=== PATIENT | female | born 1970 | race American Indian/Alaskan Native ===

== ENCOUNTER 2017-08-08 00:22 | Observation (INO) | payer OTHER ==
--- NOTE | 2017-08-08 01:03 | ED PDOC ---
HPI: Hypertension/Hypotension Time Seen by Provider: 08/08/17 00:46 Chief Complaint (Nursing): High Blood Pressure Chief Complaint (Provider): possible high BP History Per: Patient Additional Complaint(s): 47-year-old female with history of migraines and hypertension presents with palpitations and high blood pressure. Patient was at home and she felt palpitations and then checked her blood pressure and it was very high(165/101). She took 10 mg of Norvasc which she normally takes daily for high blood pressure. Patient rechecked her blood pressure about 20 minutes after the Norvasc dose and it went up (205/110) so patient contacted ambulance and was brought here. Upon arrival patient has intermittent chest pain and palpitations. She also complains of mild headache. Patient denies any vision changes upon arrival. Patient was discharged today from [facility] after being admitted 2 days ago for TIA and chest pain. Past Medical History Reviewed: Historical Data, Nursing Documentation, Vital Signs Vital Signs: Last Vital Signs Temp 99.1 F 08/08/17 00:24 Pulse 105 H 08/08/17 00:24 Resp 16 08/08/17 00:24 BP 146/65 08/08/17 00:24 Pulse Ox 99 08/08/17 00:24 - Medical History PMH: HTN, Migraine, TIA - Family History Family History: States: No Known Family Hx - Living Arrangements Living Arrangements: Alone - Social History Current smoker - smoking cessation education provided: No Alcohol: None Drugs: Denies - Home Medications Home Medications: Ambulatory Orders Medication Instructions Recorded Aspirin 81 mg PO DAILY 08/05/17 amLODIPine [Norvasc] 10 mg PO DAILY 08/05/17 Magnesium Oxide [Mag-Ox] 400 mg PO BID #60 tab 08/07/17 - Allergies Allergies/Adverse Reactions: Allergies Allergy/AdvReac Type Severity Reaction Status Date / Time No Known Allergies Allergy Verified 08/08/17 00:26 Review of Systems ROS Statement: Except As Marked, All Systems Reviewed And Found Negative Constitutional: Negative for: Fever Cardiovascular: Positive for: Chest Pain, Palpitations Respiratory: Negative for: Cough, Shortness of Breath, SOB with Exertion Gastrointestinal: Negative for: Nausea, Vomiting Neurological: Positive for: Headache. Negative for: Altered Mental Status, Dizziness Physical Exam - Reviewed Nursing Documentation Reviewed: Yes Vital Signs Reviewed: Yes - Physical Exam Appears: Positive for: Well, Non-toxic, No Acute Distress Head Exam: Positive for: ATRAUMATIC Skin: Positive for: Normal Color. Negative for: Rash Eye Exam: Positive for: Normal appearance, EOMI, PERRL Cardiovascular/Chest: Positive for: Regular Rate, Rhythm Respiratory: Positive for: Normal Breath Sounds. Negative for: Wheezing, Respiratory Distress Extremity: Positive for: Normal ROM. Negative for: Pedal Edema Neurologic/Psych: Positive for: Alert, appraiser art II-XII (grossly intact), Oriented. Negative for: Motor/Sensory Deficits, Aphasia, Facial Droop - Laboratory Results Result Diagrams: 08/08/17 01:11 08/08/17 01:11 - ECG Interpretation Of ECG: Atrial flutter 89 bpm reviewed by PA and ED attending O2 Sat by Pulse Oximetry: 99 Pulse Ox Interpretation: Normal - Other Rad Bedside chest X-Ray: Interpreted by Me, Viewed By Me X-Ray Interpretation: no acute finding CT head X-Ray: Read By Radiologist X-Ray Interpretation: see below Medical Decision Making Medical Decision Makin:05: 47 year old with palpitations and high blood pressure Plan: EKG CXR CBC CMP Trop BNP TSH Free T3 T3 Free T4 IVF at 125 cc/hr A flutter noted on EKG with rate of 89 bpm. Reviewed by PA and ED attending. Will admit patient for observation. 2:00 am: repeat BP 153/101, HR 94 - Labetalol 20 mg IV ordered. Patient also states she now has blurry vision with headache. CT head ordered, reglan IV ordered for headache 2:55 am: repeat BP after reglan: 144/80. Labetalol held. Patient states headache now resolved. CT head: FINDINGS: Brain: Prominent cisterna magnum. No hemorrhage. No significant white matter disease. Ventricles: Unremarkable. No ventriculomegaly. Bones/joints: Unremarkable. No acute fracture. Soft tissues: Fatty infiltration of parotid glands. Sinuses: Unremarkable. No acute sinusitis. Mastoid air cells : Unremarkable. No mastoid effusion. Orbits: The globe and lens are intact. IMPRESSION: No evidence of an acute intracranial hemorrhage, midline shift or mass effect is identified. 4:00 am: patient states headache is back, toradol 30 mg IV ordered. 4:30 am: BP 148/98, labetalol 10 mg IV ordered 5:30 am: Case was d/w medicine bus person, Dr. Chase. Patient admitted to observation telemetry. Disposition - Clinical Impression Clinical Impression: Palpitations, Hypertension - Patient ED Disposition Is Patient to be Admitted: Yes - Disposition Disposition Time: 05:28 Condition: FAIR - Pt Status Changed To: Hospital Disposition Of: Observation
[2017-08-08 01:21] LABS: BASO % 0.2 % (0.0-2.0); EOS % 0.1 % (0.0-4.0); HEMOGLOBIN 14.9 g/dL (12.0-16.0); LYMPH # 0.7 K/uL (1.0-4.3); LYMPH % 4.9 % (20.0-40.0); MEAN CELL VOLUME 92.8 fl (81.0-99.0); MEAN CORPUSCULAR HEMOGLOBIN 30.8 pg (27.0-31.0); MEAN CORPUSCULAR HGB CONC 33.1 g/dL (33.0-37.0); MEAN PLATELET VOLUME 7.8 fl (7.2-11.7); MONO # 0.6 K/uL (0.0-0.8); MONO % 4.5 % (0.0-10.0); NEUT # 12.9 K/uL (1.8-7.0); NEUT % 90.3 % (50.0-75.0); NRBC % 0.1 % (0.0-0.0); PLATELET COUNT 221 K/uL (130-400); RBC 4.84 Mil/uL (3.80-5.20); RED CELL DISTRIBUTION WIDTH 14.2 % (11.5-14.5); WHITE BLOOD COUNT 14.3 K/uL (4.8-10.8)
[2017-08-08 01:24] LABS: ALB/GLOB RATIO 1.2 (1.0-2.1); ALBUMIN 4.3 g/dL (3.5-5.0); CALCIUM 10.3 mg/dL (8.4-10.2); GFR AFRICAN-AMERICAN > 60; GFR NON-AFRICAN AMERICAN > 60
[2017-08-08 01:33] LABS: ALT/SGPT 52 U/L (9-52); AST/SGOT 45 U/L (14-36); BLOOD UREA NITROGEN 17 mg/dl (7-17)
[2017-08-08] MEDS ORDERED: Sodium Chloride 0.9% 1,000 ML IV STA (01:38)
[2017-08-08] MEDS ORDERED: Labetalol 5 mg/ml Inj 20ML IV STA (01:55)
[2017-08-08 02:01] VITALS: RESP 18
--- NOTE | 2017-08-08 02:22 | CT ---
EXAM: CT Head Without Intravenous Contrast CLINICAL HISTORY: 47 years old, female; Pain; Headache; Additional info: Blurry vision, headache TECHNIQUE: Axial computed tomography images of the head/brain without intravenous contrast. All CT scans at this facility use one or more dose reduction techniques, viz.: automated exposure control; ma/kV adjustment per patient size (including targeted exams where dose is matched to indication; i.e. head); or iterative reconstruction technique. 338 images are submitted. Axial images are submitted in bone and brain windows. Coronal and sagittal reformatted images were created and reviewed. Axial reformatted images were created and reviewed. COMPARISON: No relevant prior studies available. FINDINGS: Brain: Prominent cisterna magnum. No hemorrhage. No significant white matter disease. Ventricles: Unremarkable. No ventriculomegaly. Bones/joints: Unremarkable. No acute fracture. Soft tissues: Fatty infiltration of parotid glands. Sinuses: Unremarkable. No acute sinusitis. Mastoid air cells: Unremarkable. No mastoid effusion. Orbits: The globe and lens are intact. IMPRESSION: No evidence of an acute intracranial hemorrhage, midline shift or mass effect is identified.
[2017-08-08 03:26] LABS: B-TYPE NATRIURETIC PEPTIDE 75.9 pg/ml (0-450)
[2017-08-08] MEDS ORDERED: Labetalol 5 mg/ml Inj 20ML IVP STA (04:28)
[2017-08-08 04:30] LABS: LYMPHOCYTE 2 % (20-50); MONOCYTE 6 % (0-10); NEUTROPHIL 92 % (42-75); TOTAL CELLS COUNTED 100
[2017-08-08 04:31] LABS: ANISOCYTOSIS SLIGHT; BURR CELLS SLIGHT; PLATELET ESTIMATE NORMAL (NORMAL); TEARDROP CELLS SLIGHT
[2017-08-08 05:13] LABS: T3 0.911 nmol/L (1.49-2.60)
--- NOTE | 2017-08-08 08:01 | RAD ---
HISTORY: chest pain COMPARISON: No prior. FINDINGS: LUNGS: No active pulmonary disease. PLEURA: No significant pleural effusion identified, no pneumothorax apparent. CARDIOVASCULAR: Normal. OSSEOUS STRUCTURES: No significant abnormalities. VISUALIZED UPPER ABDOMEN: Normal. OTHER FINDINGS: None. IMPRESSION: No acute cardiopulmonary disease appreciated.
[2017-08-08 08:42] LABS: ALB/GLOB RATIO 1.4 (1.0-2.1); ALT/SGPT 49 U/L (9-52); AST/SGOT 28 U/L (14-36); BLOOD UREA NITROGEN 13 mg/dl (7-17); GFR AFRICAN-AMERICAN > 60; GFR NON-AFRICAN AMERICAN > 60; HDL CHOLESTEROL 46 MG/DL (30-70)
--- NOTE | 2017-08-08 08:45 | CP.PCM.HP ---
History of Present Illness - History of Present Illness History of Present Illness: 47 yo ,f, PMhx/o Migraines, HTN, TIA presents c/o palpitation started yesterday afternoon. Patient was recently discharged yesterday early from [facility] due to TIA and migraine resolved. Patient states that late during the night she took her BP , it was high 165/101 and she got nervous, started felling palpitation, SOB, headache and when repeated BP it was 205/101/ and patient decided to come to Ed. She denies focal weakness, numbness, chest pain, cough, dysuria. Patient evaluated by Dr Chase during round today. patient asymptomatic, BP controlled, patient cleared to be discharged on metoprolol 50 mg BID Present on Admission - Present on Admission Any Indicators Present on Admission: No History of DVT/PE: No History of Uncontrolled Diabetes: No Urinary Catheter: No Decubitus Ulcer Present: No Review of Systems - Review of Systems All systems: reviewed and no additional remarkable complaints except - Cardiovascular Additional comments: palpitation , SOB - Neurological Additional comments: headache Past Patient History - Past Medical History & Family History Past Medical History?: Yes - Past Social History Smoking Status: Never Smoked - CARDIAC Hx Hypertension: Yes - PULMONARY Hx Respiratory Disorders: No - NEUROLOGICAL Hx Migraine: Yes Hx Transient Ischemic Attacks (TIA): Yes - HEENT Hx HEENT Problems: No - RENAL Hx Chronic Kidney Disease: No - ENDOCRINE/METABOLIC Hx Endocrine Disorders: Yes - HEMATOLOGICAL/ONCOLOGICAL Hx Blood Disorders: No - INTEGUMENTARY Hx Dermatological Problems: No - MUSCULOSKELETAL/RHEUMATOLOGICAL Hx Musculoskeletal Disorders: No Hx Falls: No - GASTROINTESTINAL Hx Gastrointestinal Disorders: No - GENITOURINARY/GYNECOLOGICAL Hx Genitourinary Disorders: No - PSYCHIATRIC Hx Substance Use: No - SURGICAL HISTORY Hx Surgeries: No - ANESTHESIA Hx Anesthesia: No Meds Home Medications: Home Medication List Medication Instructions Recorded Confirmed Type Metoprolol Tartrate [Lopressor] 50 mg PO Q12 #60 tab 08/08/17 Rx Allergies/Adverse Reactions: Allergies Allergy/AdvReac Type Severity Reaction Status Date / Time No Known Allergies Allergy Verified 08/08/17 00:26 Physical Exam - Constitutional Appears: Toxic, No Acute Distress - Head Exam Head Exam: ATRAUMATIC, NORMOCEPHALIC - Eye Exam Eye Exam: Normal appearance - ENT Exam ENT Exam: Mucous Membranes Moist - Neck Exam Neck exam: Positive for: Normal Inspection - Respiratory Exam Respiratory Exam: Clear to Auscultation Bilateral. absent: Rhonchi, Wheezes - Cardiovascular Exam Cardiovascular Exam: REGULAR RHYTHM, +S1, +S2 - GI/Abdominal Exam GI & Abdominal Exam: Normal Bowel Sounds, Soft - Extremities Exam Extremities exam: Positive for: normal inspection. Negative for: pedal edema - Neurological Exam Neurological exam: Alert, Oriented x3 - Psychiatric Exam Psychiatric exam: Normal Affect, Normal Mood - Skin Skin Exam: Intact Results - Vital Signs Recent Vital Signs: Last Vital Signs Temp 98.4 F 08/08/17 07:56 Pulse 86 08/08/17 07:56 Resp 18 08/08/17 07:56 BP 120/77 08/08/17 07:56 Pulse Ox 100 08/08/17 07:56 - Labs Result Diagrams: 08/08/17 01:11 08/08/17 08:17 Labs: Laboratory Results - last 24 hr 08/08/17 08/08/17 08/08/17 01:11 01:11 03:03 WBC 14.3 H RBC 4.84 Hgb 14.9 Hct 44.9 MCV 92.8 MCH 30.8 MCHC 33.1 RDW 14.2 Plt Count 221 MPV 7.8 Neut % (Auto) 90.3 H Lymph % (Auto) 4.9 L [place] % (Auto) 4.5 Eos % (Auto) 0.1 Baso % (Auto) 0.2 Neut # (Auto) 12.9 H Lymph # (Auto) 0.7 L [place] # (Auto) 0.6 Eos # (Auto) 0.0 Baso # (Auto) 0.0 Neutrophils % (Manual) 92 H Lymphocytes % (Manual) 2 L Monocytes % (Manual) 6 Platelet Estimate Normal Anisocytosis (manual) Slight Tear Drop Cells Slight [place] Cells Slight Sodium 139 Potassium 4.5 Chloride 105 Carbon Dioxide 22 Anion Gap 17 BUN 17 Creatinine 0.8 Est GFR ( Amer) > 60 Est GFR (Non-Af Amer) > 60 Random Glucose 127 H Calcium 10.3 H Total Bilirubin 1.0 AST 45 H D ALT 52 Alkaline Phosphatase 70 Troponin I 0.0170 NT-Pro-B Natriuret Pep Total Protein 7.8 Albumin 4.3 Globulin 3.5 Albumin/Globulin Ratio 1.2 Triglycerides Cholesterol HDL Cholesterol Free T4 1.15 Total T3 TSH 3rd Generation 08/08/17 08/08/17 03:03 08:17 WBC RBC Hgb Hct MCV MCH MCHC RDW Plt Count MPV Neut % (Auto) Lymph % (Auto) [place] % (Auto) Eos % (Auto) Baso % (Auto) Neut # (Auto) Lymph # (Auto) [place] # (Auto) Eos # (Auto) Baso # (Auto) Neutrophils % (Manual) Lymphocytes % (Manual) Monocytes % (Manual) Platelet Estimate Anisocytosis (manual) Tear Drop Cells [place] Cells Sodium 139 Potassium 4.1 Chloride 104 Carbon Dioxide 26 Anion Gap 13 BUN 13 Creatinine 0.7 Est GFR ( Amer) > 60 Est GFR (Non-Af Amer) > 60 Random Glucose 97 Calcium 9.0 Total Bilirubin 0.6 AST 28 ALT 49 Alkaline Phosphatase 64 Troponin I < 0.0120 NT-Pro-B Natriuret Pep 75.9 Total Protein 6.9 Albumin 4.0 Globulin 2.9 Albumin/Globulin Ratio 1.4 Triglycerides 50 Cholesterol 158 HDL Cholesterol 46 Free T4 Total T3 0.911 L TSH 3rd Generation 1.48 Assessment & Plan - Assessment and Plan (Free Text) Plan: Assessment/Plan 1) Palpitation -2/2 high blood pressure and anxiety -resolved 2) HTN Uncontrolled Will give metoprolol 50 mg BID 3) Migrainge -controlled -CT head, MRI normal 4) DVT Prophylaxis -Lovenox 40 mg sc daily
[2017-08-08 08:48] LABS: LDL CHOLESTEROL 90 mg/dL (0-129)
[2017-08-08] MEDS ORDERED: Magnesium Oxide 400 mg Tab UD PO SCH (09:00)
--- NOTE | 2017-08-08 11:54 | CARD ---
APPROVED REPORT EKG Measurement Heart [id number] IN P44 [id number] <Conclusion> Sinus rhythm Nonspecific T wave abnormality Abnormal ECG artefact in lead V5
[2017-08-08 12:08] VITALS: BP 119/79; PULSE 77; TEMP 98.2; O2SAT 98
[2017-08-08 13:06] LABS: SQUAMOUS EPITHIAL 3 /hpf (0-5); URINE BACTERIA MANY (<OCC); URINE BILIRUBIN NEGATIVE (NEGATIVE); URINE BLOOD SMALL (NEGATIVE); URINE CLARITY SLIGHTY-CLOUDY (Clear); URINE COLOR YELLOW (YELLOW); URINE GLUCOSE (UA) NEG (Normal); URINE LEUKOCYTE ESTERASE MOD Leu/uL (Negative); URINE PROTEIN NEGATIVE (NEGATIVE); URINE UROBILINOGEN 0.2-1.0 mg/dL (0.2-1.0)
== END 2017-08-08 15:00 | disposition home or self-care (01) ==
LOC: H.ER 00:22 → H.ERHOLD 02:12 → H.TEL 05:02
PROVIDERS: ADMIT Family Medicine; ATTEND Family Medicine
DX: R00.2 Palpitations (principal); I10 Essential (primary) hypertension; G43.909 Migraine, unspecified, not intractable, without status migrainosus; F41.9 Anxiety disorder, unspecified; Z79.82 Long term (current) use of aspirin; Z79.899 Other long term (current) drug therapy; Z86.73 Personal history of transient ischemic attack (TIA), and cerebral infarction without residual deficits
CPT/HCPCS: 70450; 71045; 80053; 80061; 81003; 83880; 84439; 84443; 84481; 84484; 85025; 93005; 96374; 96375; 99285; G0378; J1885; J2765; J7030

== ENCOUNTER 2017-08-09 11:34 | Emergency (ER) | payer OTHER ==
[2017-08-09 12:11] VITALS: TEMP 98.7; O2SAT 100
--- NOTE | 2017-08-09 14:52 | ED PDOC ---
Syncope/Near Syncope/Dizziness Time Seen by Provider: 08/09/17 12:56 Chief Complaint (Nursing): Dizziness/Lightheaded Chief Complaint (Provider): Dizziness/Lightheaded History Per: Patient History/Exam Limitations: no limitations Onset/Duration Of Symptoms: Days Current Symptoms Are (Timing): Still Present Additional Complaint(s): 47 year old female presents to the ED with complaints of persistent symptoms of intermittent dizziness, headache, paresthesia to the left arm, and anxiousness. Additionally, patient is concerned for elevated blood pressure and admits to being compliant with medications, metropolol and norvasc. Patient states she was seen on August 05 and admitted at [facility] for similar symptoms. She was discharged on August 07 but presented to [facility] ED on the and admitted for observation. Patient was released again yesterday afternoon and states that during admissions, all results were unremarkable including CT of the Head, CTA of Head, and Carotid US. Patient states her current headache is 4/10 and is consistent with prior migraine headaches, just the duration has been longer. PMD: Dr. Francis LNMP: 07/26/2017 Past Medical History Reviewed: Historical Data, Nursing Documentation, Vital Signs Vital Signs: Last Vital Signs Temp 98.7 F 08/09/17 12:08 Pulse 78 08/09/17 12:08 Resp 16 08/09/17 12:08 BP 152/98 H 08/09/17 12:08 Pulse Ox 100 08/09/17 12:08 - Medical History PMH: HTN, Migraine, TIA Denies: Chronic Kidney Disease - Surgical History Surgical History: No Surg Hx - Family History Family History: States: Unknown Family Hx - Social History Current smoker - smoking cessation education provided: No Alcohol: Social Drugs: Denies - Home Medications Home Medications: Ambulatory Orders Medication Instructions Recorded Aspirin 81 mg PO DAILY 08/05/17 Magnesium Oxide [Mag-Ox] 400 mg PO BID #60 tab 08/07/17 Metoprolol Tartrate [Lopressor] 50 mg PO Q12 #60 tab 08/08/17 - Allergies Allergies/Adverse Reactions: Allergies Allergy/AdvReac Type Severity Reaction Status Date / Time No Known Allergies Allergy Verified 08/08/17 00:26 Review of Systems ROS Statement: Except As Marked, All Systems Reviewed And Found Negative Neurological: Positive for: Headache, Dizziness, Other (paresthesia to the left arm ) Psych: Positive for: Anxiety Physical Exam - Reviewed Nursing Documentation Reviewed: Yes Vital Signs Reviewed: Yes - Physical Exam Comments: GENERALIZED APPEARANCE:Patient is awake, alert, oriented x3 in no acute distress. Resting comfortably, on cell phone. SKIN: Warm, dry; (-) cyanosis. HEAD: (-) scalp swelling or tenderness. EYES: (-) conjunctival pallor. ENMT: Mucous membranes dry. NECK: Supple, FROM (-) tenderness, (-) stiffness, (-) lymphadenopathy. CHEST AND RESPIRATORY: (-) rales, (-) rhonchi, (-) wheezes; breath sounds equal bilaterally. Respirations even and nonlabored, speaking in full sentences. HEART AND CARDIOVASCULAR: (-) irregularity; (-) murmur, (-) gallop. ABDOMEN AND GI: Soft; (-) distention, (-) tenderness, (-) rebound, (-) guarding , (-) palpable masses, (-) CVA tenderness. EXTREMITIES: (-) deformity; (-) edema. NEURO AND PSYCH: Mental status as above. motor power connector: (-) nystagmus; Pupils EOMI and painless, (-) facial asymmetry; (-) aphasia; tongue and uvula midline. Strength symmetric. Gait: normal. Speech clear. - ECG ECG Rhythm: Positive for: Sinus Rhythm Interpretation Of ECG: QTc of 416. No ST elevation. Rate: 65 O2 Sat by Pulse Oximetry: 100 (RA) Pulse Ox Interpretation: Normal Medical Decision Making Medical Decision Making: Time: 1308 Plan: -- EKG Time: 1400 -- EKG reviewed. -- Dr. Augustin will see patient at bedside Extensive conversation between patient and Dr Augustin reveals patient is agreeable to outpatient follow up. Repeat BP: 146/90 Repeat HR: 65 On re-evaluation, patient offers no additional complaints at this time. On exam , patient remains AAOx3, in no acute distress. On exam, neck is supple, lungs CTA, cardiac RRR, abdomen is soft and non-tender, neuro exam shows no focal findings. Vitals stable, stable for discharge. Diagnostic results d/w the patient in great detail. Dx of migraine headache, paresthesias, concern for elevated BP d/w the patient. Based on history, exam and diagnostic results plan will be for discharge and outpatient follow up. Advised to follow up with primary care physician/neuro/cardio in 1-2 days without fail. Continue current medications as prescribed. Return to the emergency room at any time for any new or worsening symptoms. Patient states she fully agrees with and understands discharge instructions. States that she agrees with the plan and disposition. Verbalized and repeated discharge instructions and plan. I have given the patient opportunity to ask any additional questions. Scribe Attestation: Documented by Ayesha Mckoy, acting as a scribe for Keri Bui PA-C. Provider Scribe Attestation: All medical record entries made by the Scribe were at my direction and personally dictated by me. I have reviewed the chart and agree that the record accurately reflects my personal performance of the history, physical exam, medical decision making, and the department course for this patient. I have also personally directed, reviewed, and agree with the discharge instructions and disposition. Disposition - Clinical Impression Clinical Impression: Headache, Paresthesias, Dizziness - Patient ED Disposition Is Patient to be Admitted: No Counseled Patient/Family Regarding: Studies Performed, Diagnosis, Need For Followup - Disposition Referrals: Robby Be MD [Medical Doctor] - Disposition: Routine/Home Disposition Time: 14:52 Condition: FAIR Additional Instructions: FOLLOW UP WITH PMD/NEURO IN 1-2 DAYS WITHOUT FAIL. RETURN TO ED WITH ANY NEW OR WORSENING SYMPTOMS. CONTINUE MEDICATIONS FROM PRIOR ED VISITS. CONTINUE TO MONITOR BLOOD PRESSURE READINGS AT HOME. Instructions: Migraine Headache (DC), Dizziness, Nonvertigo, (DC), Paresthesias (DC) Forms: [employer] (Mexican) Print Language: YAKUT - POA Present On Arrival: None
[2017-08-09 15:16] VITALS: PULSE 65
[2017-08-09 15:27] VITALS: BP 146/90; RESP 18
--- NOTE | 2017-08-10 16:48 | CARD ---
APPROVED REPORT EKG Measurement Heart [id number] [id number] <Conclusion> Normal sinus rhythm Possible Left atrial enlargement Borderline ECG
== END 2017-08-09 15:03 | disposition home or self-care (01) ==
LOC: H.ER 11:34
DX: R51 Headache (principal); R42 Dizziness and giddiness; R20.2 Paresthesia of skin; G43.909 Migraine, unspecified, not intractable, without status migrainosus; I10 Essential (primary) hypertension; Z79.82 Long term (current) use of aspirin; Z86.73 Personal history of transient ischemic attack (TIA), and cerebral infarction without residual deficits